=== PATIENT | female | born 1955 | race Caucasian/White ===

== ENCOUNTER 2023-12-24 07:39 | Outpatient (REF) | payer MEDICARE, OTHER, SELFPAY ==
--- NOTE | ~2023-12-24 | MM_ITS ---
EXAMINATION: MM SCREENING DIGITAL BREAST TOMOSYNTHESIS, BILATERAL CLINICAL INFORMATION: Screening. Asymptomatic. COMPARISON: Mammography: This study is compared with prior exams dating back to 2013. TECHNIQUE: Digital breast tomosynthesis is performed in both the craniocaudal and mediolateral oblique views along with computer-aided detection (CAD). Synthesized 2D images are generated from the tomosynthesis. FINDINGS: There are scattered areas of fibroglandular density (ACR BI-RADS breast composition Category b). There are no significant masses, abnormal calcifications, or other abnormalities. MM/MM tomosynthesis screening BI IMPRESSION: No mammographic evidence of malignancy. ASSESSMENT: BI-RADS BI-RADS 1 - Negative RECOMMENDATION: Routine annual mammography screening. 1 year F/U This examination should not preclude the clinical evaluation of a suspicious palpable abnormality. This patient's information was entered into a reminder system with a target due date for their next mammogram.
== END 2023-12-24 07:40 | disposition home or self-care (01) ==
LOC: HO.MAMMO 07:39
PROVIDERS: PCP Internal Medicine; Visit Provider Internal Medicine
DX: Z12.31 Encounter for screening mammogram for malignant neoplasm of breast (principal)
CPT/HCPCS: 77063; 77067

== ENCOUNTER → 2023-12-24 07:45 | Outpatient (BNV) | payer OTHER, MEDICARE, SELFPAY | PROVIDERS: PCP Internal Medicine; Visit Provider Radiology Diagnostic Radiology | DX: Z12.31 Encounter for screening mammogram for malignant neoplasm of breast (principal) | CPT/HCPCS: 77063; 77067 ==

== ENCOUNTER 2024-12-29 07:28 | Outpatient (REF) | payer MEDICARE, OTHER, SELFPAY ==
--- OUTSIDE RECORDS SUMMARY | 2024-12-29 07:30 | XMS_ITS | Data Portability ---
Author Organization [facility], Telehealth Patient Home Address [address] [facility], [place] [address] Assessment Encounter Date Assessment Date Assessment LastModified by Organization Details LastModified Time 11/03/2024 11/03/2024 [address] [place] [id number] (PROMOTIONAL MODEL) MDM MODERATE MUST MEET 2 OUT OF 3 ELEMENTS: PROBLEMS, DATA OR RISK ELEMENT 1: PROBLEMS ADDRESSED 1 OR MORE CHRONIC ILLNESS WITH EXACERBATION OR 2 OR MORE STABLE CHRONIC ILLNESSES OR 1 UNDIAGNOSED NEW PROBLEM OR 1 ACUTE ILLNESS W/SYMPTOMS OR 1 ACUTE COMPLICATED INJURY ELEMENT 2: DATA MUST MEET 1 OF 3 CATEGORIES CATEGORY 1: REVIEW OF PRIOR EXTERNAL NOTES, REVIEW OF RESULTS, ORDERING OF EACH TEST, ASSESSMENT REQUIRING INDEPENDENT HISTORIAN OR CATEGORY 2: INDEPENDENT INTERPRETATION OF TESTS BY ANOTHER PHYSICIAN OR SPECIALIST OR CATEGORY 3: DISCUSSION OF MGT OR TEST INTERPRETATION W/EXTERNAL PHYSICIAN OR SPECIALIST ELEMENT 3: RISK RISK OF COMPLICATIONS AND/OR MORBIDITY OR MORTALITY OF PATIENT MANAGEMENT PROVIDER MUST THOROUGHLY DOCUMENT EACH ELEMENT THAT IS COVERED Not available 11/03/2024 12:19:06 Plan of Treatment Reminders Order Date Submit Date Provider Last Modified By Organization Details Last Modified Time Details Appointments None recorded. Lab lipid panel, blood 2024 025 [facility], [address] [place] [address], [place], [address], 12:42:28 CBC 2024 025 [facility], [address] [place] [address], [address], 5 18:22:28 CMP, serum or plasma 2024 [facility], [address] [place] [address], [address], 5 12:42:28 CBC 2024 [facility], [address] [place] [address], [address], 12:42:28 ferritin, serum or plasma 2024 [facility], [address] [place] [address], [address], 5 12:42:28 folate, serum 2024 [facility], [address] [place] [address], [address], 12:42:28 iron + total iron-luis ng capacity (TIBC), serum 2024 [facility], [address] [place] [address], [address], 12:42:28 retic count, blood 2024 [facility], [address] [place] [address], [address], 12:42:28 vitamin B12, serum 2024 [facility], [address] [place] [address], [address], 5 12:42:28 lyme disease igg+igm, serum, reflex western blot 2024 [facility] [employer] [facility] [employer] [facility] [address], [place], [address], 12:23:08 lyme disease igg+igm, serum, reflex western blot 2024 025 [facility] [address], [address], 5 12:23:08 ehrlichios is + anaplasmos is + babesiosis + borrelia miyamotoi DNA panel, serum, plasma or blood 2024 025 [place] [facility] [employer] [facility] [address], [address], 5 21:36:33 uric acid, serum or plasma 2021 [facility], [address] [place] [address], [address], 14:13:08 lyme disease igg+igm, serum, reflex western blot 2021 [facility], [address] [place] [address], [address], 2 12:18:05 Referral endocrinol ogy referral 2024 025 ARACELI Villareal MD, [address] [place], [address], 5 11:13:19 orthopedic surgeon referral 2024 025 kurt Bowser MD, [address] [place] [address], [address], 5 09:29:54 gastroente rologist referral 2024 025 kurt Johns MD, [address] [place] [address], [address], 5 08:17:16 gastroente rologist referral 2023 024 kurt Johns MD, [address] [place] [address], [address], 4 08:05:15 dermatolog ist referral 2021 022 kurt Zelaya MD, [address], [place], [address], 2 08:38:01 dermatolog ist referral 2017 018 jordana Ryan, [address], [place], [address], 8 08:38:48 orthopedic referral 2017 018 kurt Bowser MD, [address] [facility] [address], [place], [address], 8 10:04:27 gastroente rologist referral 2017 018 jordana Johns MD, [address] [place] [address], [address], 8 08:38:08 Procedures None recorded. Surgeries None recorded. Imaging XR, hand, 3 or more view 2023 024 [email or web address] Not available 4 09:16:18 CT, ankle + foot, w/o contrast - bilateral imaging 2022 023 [email or web address] 10 Not available 3 08:21:12 Medication Orders pantoprazo le 40 mg tablet,del ayed release 2023 024 [id number], [address] [place], [place], [id number], 4 13:16:08 dicyclomin e 10 mg capsule 2023 024 radha [facility] #[id number], [address] [place], [place], [id number], 5 11:43:33 doxycyclin e hyclate 100 mg tablet 2021 022 [id number], [address] [place], [place], [id number], 2 11:05:30 omeprazole 20 mg capsule,de layed release 2017 018 rosmery [facility] #[id number], [address] [place], [place], [id number], 09:34:42 Patient TargetsNo targets recorded. Patient Instructions Encounter Date Encounter Id Patient Instructions Last Modified By Organization Details Last Modified Time 05/27/2018 [id number] osteoporosis: ca re instructions Not available 05/27/2018 11:33:26 gastroesophageal reflux disease (GERD): care instructions Not available 05/27/2018 11:33:26 11/03/2024 [id number] osteoporosis: ca re instructions Not available 11/03/2024 12:17:44 barker's esopha neo: care instructions Not available 11/03/2024 12:18:42 tick bite: care instructions Not available 11/03/2024 12:21:58 Reason for Referral Integrity Engineer Referral for Gastroesophageal reflux disease refractory gerd needs EGD Referring Physician: Ravindra Benavidez, Internal Medicine, Encounter Date: 05/27/2018 Orthopedic Referral for Dera ngement of medial meniscus progressive left knee instability Referring Physician: Ravindra Benavidez, Internal Medicine, Encounter Date: 05/27/2018 Quiller Machine Fixer Referral for M elanocytic nevus irregular melanocytic skin lesion Referring Physician: Ravindra Benavidez, Internal Medicine, Encounter Date: 05/27/2018 Quiller Machine Fixer Referral for S kin lesion scheduled appt for skin lesion, needed referral Referring Physician: Hui Uriarte, Internal Medicine, Encounter Date: 08/29/2021 Integrity Engineer Referral for Sliding hiatus hernia needs new endoscope, worsening hiatal hernia and GERD symptoms, can't eat after 2 pm Referring Physician: Hui Uriarte, Internal Medicine, Encounter Date: 08/06/2023 Orthopedic Surgeon Referral for Arthropathy of right knee joint Referring Physician: Ravindra Benavidez, Internal Medicine, Encounter Date: 11/03/2024 Endocrinology Referral for O steoporosis Referring Physician: Ravindra Benavidez, Internal Medicine, Encounter Date: 11/03/2024 Integrity Engineer Referral for Barker's esophagus Referring Physician: Ravindra Benavidez, Internal Medicine, Encounter Date: 11/03/2024 Results Created Date Observation Date Name Description Value Unit Range Abnormal Flag Note LastModifiedBy Organization Detail LastModifiedTime 11/08/19 22 11/07/2021 US, abdom en No observ ation record ed. [email or web address] [facility] (Mammo) [address] [place] [address], [address], 11/07/2021 15:14:02 12/08/19 22 12/07/2021 XR, lumbo sacra l spine , 2 or 3 view No observ ation record ed. [facility] [address] [place] [address], [place], [address], 12/07/2021 15:42:15 11/13/19 23 11/07/2022 CT, foot, w/o contr ast No observ ation record ed. [facility] (Scheduling Dept) [address] [place] [address], [address], 02/11/2023 06:29:21 11/13/19 23 11/07/2022 CT, foot, w/o contr ast No observ ation record ed. [address], [address], 02/11/2023 06:30:43 09/05/19 24 09/03/2023 XR, hand, 3 or more view No observ ation record ed. [email or web address] [address], [address], 09/08/2023 10:15:35 10/08/19 24 10/08/2023 bone densi ty No observ ation record ed. [address], [place], [address], 10/09/2023 08:59:37 01/15/20 24 12/24/2023 MAMMO , scree gloria, digit al, bilat eral No observ ation record ed. [address] [place], [address], 01/15/2024 15:03:48 Result Notes None recorded. Problems Name Problem SNOMED Code Status Onset Date Resolution Date Notes Provider Name and Address Organization Details Recorded Time Gastroeso phageal reflux disease 340926396 Active 2017 Camilla rodriguez [facility] 5 08:24:48 Diverticu losis of intestine Active 2017 Camilla rodriguez [facility] 5 08:24:48 Family history of malignant neoplasm of pancreas 742611464 Active 2017 Camilla rodriguez [facility] 5 08:24:48 Osteoporo sis 92654684 Active 2017 Camilla rodriguez [facility] 5 08:24:48 Osteoarth ritis 148891582 Active 2017 Camilla rodriguez [facility] 5 08:24:48 Epigastri c pain 59501821 Active 2021 Camilla rodriguez [facility] 5 08:24:52 Bilateral chronic pain of feet 937150059267 52590 Active 2022 Camilla rodriguez [facility] 5 08:24:48 Pain in right foot 203427016109 107 Active 2022 Camilla rodriguez [facility] 5 08:24:52 Pain in left foot 914354299816 107 Active 2022 Camilla rodriguez [facility] 5 08:24:52 Disorder of nail 92365918 [facility] 5 08:24:48 Sliding hiatus hernia 354865525 Active 2023 [facility] 5 08:24:48 Arthropat hy of right knee joint 098738634 Active 2024 Ravindra Benavidez, [address], [address], [facility] 5 12:16:19 Barker's esophagus 138540345 Active 2024 Ravindra Benavidez [address], [address], [facility] 5 12:18:16 Tick bite 31261114 Active 2024 Ravindra Benavidez [address], [address], [facility] 5 12:19:35 Hyperchol esterolem ia 71355577 Active 2024 Ravindra Benavidez [address], [address], [facility] 5 12:21:30 Problem Notes None recorded. Procedures Surgical History Date Name Laterality Status Provider Name and Address Organization Details Recorded Time 4 Colonoscopy completed Geovanny Benavidez [facility] 11/26/2023 13:56:15 Imaging Results None recorded. Procedure Notes None recorded. Medical Equipment None Reported. Allergies Allergen ID Allergen Name Allergen Category Reaction Reaction Severity Criticality Documentation Date Start Date Code Code System Note Provider Name and Address Organization Details Recorded Time 2576 meloxicam medicatio n Not available Not available Not available 05/27/2018 48287 RxNorm Geovanny rodriguez [facility] 8 08:23:35 2577 tramadol medicatio n Not available Not available Not available 05/27/2018 61788 RxNorm Geoavnny rodriguez [facility] 8 11:13:53 Medications Name Sig Start Date Stop Date Status Note LastModified by Organization Details LastModified Time cyclobenzapr ine 10 mg tablet 10/21 completed Not Available Not Available Not Available alendronate 70 mg tablet 05/27 completed Not Available Not Available Not Available benzonatate 100 mg capsule 05/27 completed Not Available Not Available Not Available pantoprazole 40 mg tablet,delay ed release TAKE 1 TABLET BY MOUTH EVERY DAY 2024 active Not Available Not Available Not Avai lable omeprazole 20 mg capsule,ruben yed release Take 1 capsule every day by oral route for 30 days. 08/29 completed Not Available Not Available Not Available raloxifene 60 mg tablet TAKE 1 TABLET BY MOUTH EVERY DAY active Not Available Not Available No t Available doxycycline hyclate 100 mg tablet Take 1 tablet twice a day by oral route for 5 days. 02/08 completed Not Available Not Available Not Available dicyclomine 10 mg capsule TAKE 1 CAPSULE BY MOUTH THREE TIMES DAILY 11/03 completed Not Available Not Available Not Available famotidine active Not Available Not Av ailable Not Available Vitals Date Recorded Body height Body mass index (BMI) Body weight Oxygen saturation Oxygen saturation in Arterial blood by Pulse oximetry Heart rate Systolic And Diastolic Provider Name and Address Organization Details Last Updated DateTime 4 167.64 cm 26.6 kg/m2 09957.7 4 g 98 % 98 % 74 /min 138/80 mm[Hg] Zamzam Venegas [facility] 4 10:11:48 Date Recorded Body height Body mass index (BMI) Body weight Oxygen saturation Oxygen saturation in Arterial blood by Pulse oximetry Heart rate Systolic And Diastolic Provider Name and Address Organization Details Last Updated DateTime 2 167.64 cm 25.8 kg/m2 61963.7 g 99 % 99 % 67 /min 140/90 mm[Hg] Lori Thompson [facility] 2 09:37:28 Date Recorded Body weight Oxygen saturation Oxygen saturation in Arterial blood by Pulse oximetry Heart rate Systolic And Diastolic Provider Name and Address Organization Details Last Updated DateTime 3 44863.6 6 g 100 % 100 % 63 /min 120/82 mm[Hg] JOSE HORTON [address] [place], [address], [facility] 3 12:12:27 Date Recorded Body weight Body mass index (BMI) Body height Heart rate Oxygen saturation Oxygen saturation in Arterial blood by Pulse oximetry Systolic And Diastolic Provider Name and Address Organization Details Last Updated DateTime 5 51653.7 4 g 26.6 kg/m2 167.64 cm 72 /min 97 % 97 % 130/78 mm[Hg] Zamzam Venegas [facility] 5 11:45:12 Date Recorded Body height Body mass index (BMI) Body weight Body temperature Oxygen saturation Oxygen saturation in Arterial blood by Pulse oximetry Heart rate Systolic And Diastolic Provider Name and Address Organization Details Last Updated DateTime 8 167.64 cm 27.3 kg/m2 02510.1 1 g 97.9 [degF] 100 % 100 % 85 /min 132/78 mm[Hg] Geovanny Benavidez [facility] 8 11:10:26 Social History Question Answer Notes LastModified by Organizat ion Details LastModified Time Tobacco Smoking Status Never Smoker Not Available [employer] 04/25/2020 03:36:24 What Was The Date Of Your Most Recent Tobacco Screening? 11/03/2024 [email or web address] Information not available 11/03/2024 Sex: Unknown Functional Status Question Answer Note LastModified by Organization D etails LastModified Time Do you or have you ever used any other forms of tobacco or nicotine? No [email or web address] Information not available 08/06/2023 Mental Status None recorded. Family History Nothing Reported. Medical History No medical history recorded. Gynecological HistoryNo gynecological history recorded. Obstetrics History GPAL:G 0 P 0 0 0 0 Immunizations Vaccine Type Date Status Note Provider Nam e and Address Organization Details Recorded Time COVID-19, mRNA, LNP-S, PF, 30 mcg/0.3 mL dose 2 completed Madison rodriguez [facility] 04/17/2022 13:37:16 Influenza, split virus, quadrivalent, preservative 2 completed Madison rodriguez [facility] 04/17/2022 13:37:59 Pneumococcal Conjugate, unspecified formulation 3 completed Carolina rodriguez, [facility] 03/26/2023 13:54:38 Respiratory syncytial virus (RSV) MAB, unspecified 3 completed Carolina rodriguez, [facility] 03/26/2023 13:57:52 influenza, unspecified formulation 3 completed Carolina rodriguez, [facility] 03/26/2023 13:58:23 SARS-COV-2 (COVID-19) vaccine, UNSPECIFIED 3 completed Geovanny rodriguez, [facility] 05/19/2023 06:58:16 MMR 5 completed [facility] 09/22/2024 12:20:32 Influenza, split virus, quadrivalent, preservative 7 completed [facility] 05/27/2018 08:26:04 Influenza, split virus, quadrivalent, preservative 9 completed Ravindra Benavidez [address], [address], [facility] 05/30/2019 19:36:22 Past Encounters Encounter ID Performer Location Encounter Start Date Encounter Closed Date Diagnosis/Indication Diagnosis SNOMED-CT Code Diagnosis ICD10 Code Diagnosis Note [id number] Ravindra Benavidez [facility] [address],[place] [address] 05/27/2018 10:38:27 05/27/2018 11:41:05 Gastroesophageal reflux disease 669112772 K21.0 omeprazole and will need a EGD Osteoporosis 74298108 M8 1.0 Derangemen t of medial meniscus 403698302 M23.309 Melanocytic nevus 934489 001 D22.9 [id number] Ravindra Benavidez [facility] [address], [place] [address] 08/29/2021 09:23:14 08/29/2021 16:38:51 Skin lesion 90689017 L98.9 has appt set up for dermatolog ist and will start on doxybigges t concern is for abscess developmen t Tick bite 08168492 W57.X XXA will recheck her lyme screen Pain of mu ltiple joints 19571896 M25.562 will fu with uric acid check Gastroesop hageal reflux disease 584028601 K21.9 cannot take PPI due to osteoporos i Osteoporosis 83360401 M8 1.0 cannot take PPI [id number] Ravindra Benavidez, [facility] [address] [facility],[place] [address] 10/21/2022 11:40:59 10/21/2022 17:13:57 Bilateral chronic pain of feet 7360970556 9586315 M79.[address] up [address] for further eval of her feet [id number] Ravindra Benavidez [facility] [address] [facility],[place] [address] 08/06/2023 10:06:37 08/06/2023 11:00:37 Disorder of nail 88528692 L60.8 will set up with XR for nail damage Sliding hiatus hernia 23 2405689 K44.9 will set up with meds and fu with Dr. Johns [id number] Ravindra Benavidez [facility] [address] [facility],[place] [address] 11/03/2024 11:31:08 11/03/2024 12:35:33 Depression screening 232358054 Z13.31 neg Arthropath y of right knee joint 739931078 M25.861 Osteoporosis 56243774 M8 1.0 Barker's esophagus 3029 22024 K22.70 Tick bite 67798021 S30.8 61A W57.XXXA Hypercholesterolemia 136 42231 E78.00 Health Concerns Section Related Observation LastModified by Organization Angelo ma LastModified Time None Recorded Concern Status LastModified by Organization Details LastModified Time None Recorded Advance Directives Directive None Recorded Payers Insurance Date Sequence Insurance Name Policy Number Policy Pike Covered Member ID Pike Member ID Guarantor Name 11/03/2024 1 MEDICARE [place]: [employer] Graciela Ruiz [id number] Graciela Ruiz 11/03/2024 1 [facility] (O) [id number] Graciela Ruiz [id number] Graciela Ruiz 11/03/2024 2 [facility] Graciela Ruiz [id number] Graciela Ruiz Notes Date Note Type Note Provider Name and Address Organization Details Recorded Time 8 text/html having gerd constantly and is not getting any relief has tried multiple meds otc pepcid and zantac having daily gerd symptoms also is having a great deal of discomfort to her left knee. 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?tick bite discussed fu with lyme panelalso given multiple joint pain, check a uric acid level as well GERD can't take PPI due to osteoporosismade suggestions for use will fu with after lab work JOSE HORTON [address] [place], [address], [facility] 08/29/2021 10:04:35 3 text/html c/o bilateral foot pain the patient reports bilateral itching, pain, and burning of the tops of her feetintermittent throughout the day; the patient reports that the change of the itching in her feet has resolved with cotton socksbut continues with burning and discomfortbad at night and in the morningtends to be on her feet all day (she's a vet) the patient reports she sees endo for her osteoporosishas bone density coming up with endo XR just showed OA, osteoporosisconcern for occult fx or deformity of the bone due to prior fx JOSE HORTON [address] [place], [address], [facility] 10/21/2022 12:47:32 4 text/html Annual WellnessReported bypatient.Diet and Nutrition:healthy diet; discussed vitamin and supplement use; discussed portion control; discussed maintaining calcium balance Fracture Risk:no history of fractures; no recent explained fracture; no sudden unexplained fractures; no previous musculoskeletal injuries Physical Activity:exercises on a regular basis; recent increase in physical activity; good physical condition Additional Lifestyle Factors:no tobacco use; drinks alcohol (mild-moderate) Depression Risk:never feels sad, empty, or tearful; no loss of interest in activities; no significant changes in weight; no sleep disturbances or insomnia; no agitation; no loss of energy; no feelings of worthlessness or guilt; no thoughts of suicide; no history of depression; no history of mood disorders Hearing:no loss of hearing Vision:no vision problems feet are doing wellhas cut back on the hiking the patient sister and father are T2DMno issues with her sugarshe checks it at work sliding hernia JOSE HORTON [address] [place], [address], [facility] 08/06/2023 10:45:48 5 text/html here for rechk and is doing okdoanjelica have a new dx of Barrettsstates being eval for the barretts by Estefany her osteoporosis is being held at bay by raloxifene Ravindra Benavidez DO [address] [place], [address], [facility] 11/03/2024 12:25:27 OBGyn Episode No OBEpisode recorded.
--- OUTSIDE RECORDS SUMMARY | 2024-12-29 07:30 | XMS_ITS | Patient Health Record ---
[facility] [place] Address [address] [place] [address] Care Team Providers Care Waitstaff Name Role Phone Pramod EGAN, Ravindra Primary Care Provider Heber Balderas Unavailable [phone] Allergies Allergen (clinical drug ingredient) Drug/Non Drug Allergy documented on EMR Reaction Allergy Type Onset Date Status Opiods (uncoded) Vomiting Allergy Act bruce Reason For Referral No Information Medications Medication SIG (Take, Route, Fr equency, Duration) Notes Start Date End Date Status Raloxifene HCl Activ e Physical Therapy . . . 2-3x/week; Durat ion: 3-4 weeks 09/15/2019 Active Social History Tobacco Use: Social History Observation Description Date Details (start date - stop date) Never Smoker NA - NA Tobacco Use/Smoking Question Answer Notes Are you a: nonsmoker Alcohol Screen Question Answer Notes Did you have a drink containing alcohol in the p ast year? Yes Points 0 Interpretation Negative Plan Of Treatment Pending Test Test Name Order Date X ray : Foot, left 2V 09/15/2019 X ray : Foot, right 2V 09/15/2019 Insurance Providers Payer Name Payer Address Payer Phone Subscriber Number Group Number Insured Name Patient Relationship to Insured Coverage Start Date Coverage End Date [facility] [address] [place] , [place] [phone] [id number] Graciela Khan Self - patient is the insured Medical (General) History Medical History History ICD Code Osteoporosis Chicken pox Surgical History Surgery Date(Month/Year)
== END 2024-12-29 07:29 | disposition home or self-care (01) ==
LOC: HO.MAMMO 07:28
PROVIDERS: PCP Internal Medicine; Visit Provider Internal Medicine
DX: Z12.31 Encounter for screening mammogram for malignant neoplasm of breast (principal)
CPT/HCPCS: 77063; 77067

== ENCOUNTER → 2024-12-29 07:45 | Outpatient (BNV) | payer MEDICARE, OTHER, SELFPAY | PROVIDERS: PCP Internal Medicine; Visit Provider Internal Medicine | DX: Z12.31 Encounter for screening mammogram for malignant neoplasm of breast (principal) | CPT/HCPCS: 77063; 77067 ==